=== PATIENT | female | born 1930 | race African-American/Black ===

== ENCOUNTER 2017-01-14 19:44 | Inpatient (IN) | payer MEDICARE, BC ==
[~2017-01-14] VITALS: Ht 167.6 cm; Wt 59.9 kg
[2017-01-14] MEDS ORDERED: SODIUM CHLORIDE 0.9% 1,000 ML IV ONE (20:14)
[2017-01-14 20:53] LABS: BASOPHILS % 0.8 % (0.0-2.0); EOSINOPHILS % 1.9 % (0.0-5.0); HEMATOCRIT. 27.7 % (36.0-48.0); HEMOGLOBIN. 9.5 g/dL (12.0-16.0); LYMPHOCYTES % 20.2 % (20.0-50.0); MEAN CORPUSCULAR HEMOGLOBIN 34.2 pg (28.0-32.0); MEAN CORPUSCULAR VOLUME 99.3 fL (81.0-99.0); MEAN PLATELET VOLUME 9.3 fl (7.4-10.4); MONOCYTES % 11.6 % (2.0-8.0); NEUTROPHILS % 65.5 % (40.0-76.0); PLATELET 89 x1000/uL (130-400); RED BLOOD CELL COUNT 2.79 mill/uL (4.2-5.4); RED CELL DISTRIBUTION WIDTH 15.1 % (11.6-14.6)
[2017-01-14 20:59] LABS: INR 1.1
[2017-01-14 21:08] LABS: CARBON DIOXIDE 24 mEq/L (21-32); CHLORIDE 106 mEq/L (98-107); TROPONIN I 0.06 ng/mL (0.00-0.04)
[2017-01-14] MEDS ORDERED: POTASSIUM CHLORIDE 20MEQ TABLET SR PO ONE (23:45)
[2017-01-15 00:30] VITALS: BP 132/56
[2017-01-15] MEDS ORDERED: LENA10CA PO (01:39)
[2017-01-15] MEDS ORDERED: CLOP75TA33 PO (01:39)
[2017-01-15] MEDS ORDERED: ASPI-1159 PO (01:39)
[2017-01-15] MEDS ORDERED: LOSA100T14 PO (01:39)
[2017-01-15 04:00] VITALS: BP 149/67
[2017-01-15 07:08] LABS: EOSINOPHILS % 2.9 % (0.0-5.0); HEMATOCRIT. 24.9 % (36.0-48.0); HEMOGLOBIN. 8.7 g/dL (12.0-16.0); LYMPHOCYTES % 26.4 % (20.0-50.0); MEAN CORPUSCULAR HEMOGLOBIN 34.1 pg (28.0-32.0); MEAN PLATELET VOLUME 9.8 fl (7.4-10.4); MONOCYTES % 14.4 % (2.0-8.0); NEUTROPHILS % 55.3 % (40.0-76.0); PLATELET 84 x1000/uL (130-400); RED BLOOD CELL COUNT 2.54 mill/uL (4.2-5.4); RED CELL DISTRIBUTION WIDTH 15.1 % (11.6-14.6)
[2017-01-15 07:46] LABS: CHLORIDE 114 mEq/L (98-107)
[2017-01-15 08:00] VITALS: BP 138/61
[2017-01-15 08:04] LABS: CARBON DIOXIDE 22 mEq/L (21-32); TROPONIN I 0.08 ng/mL (0.00-0.04)
[2017-01-15] MEDS ORDERED: LOSARTAN POTASSIUM 100 MG TABLET PO SCH (09:00)
[2017-01-15] MEDS ORDERED: ASPIRIN 81MG EC TABLET PO SCH (09:00)
[2017-01-15] MEDS ORDERED: CLOPIDOGREL 75MG TABLET PO SCH (09:00)
[2017-01-15 09:55] LABS: T4 FREE 0.88 ng/dL (0.76-1.46)
[2017-01-15] MEDS ORDERED: DIPHENOXYLATE/ATROPINE 2.5/0.025MG TABLET PO PRN (12:45)
[2017-01-15] MEDS ORDERED: SODIUM CHLORIDE 0.9% 1,000 ML IV SCH (12:45)
== END 2017-01-15 12:05 | disposition left against medical advice (07) | DRG 74 ==
LOC: ER 20:46 → 8WST 21:39 → EDBEDREQ 21:45 → ENRESERV 22:03
PROVIDERS: ADMIT Family Medicine; ATTEND Family Medicine
DX: G90.8 Other disorders of autonomic nervous system (principal); C90.00 Multiple myeloma not having achieved remission; D69.6 Thrombocytopenia, unspecified; D64.9 Anemia, unspecified; R63.4 Abnormal weight loss; Z53.21 Procedure and treatment not carried out due to patient leaving prior to being seen by health care provider; E87.6 Hypokalemia; I10 Essential (primary) hypertension; N28.9 Disorder of kidney and ureter, unspecified; Z86.73 Personal history of transient ischemic attack (TIA), and cerebral infarction without residual deficits; Z92.21 Personal history of antineoplastic chemotherapy; Z79.82 Long term (current) use of aspirin; Z79.899 Other long term (current) drug therapy; Z68.21 Body mass index [BMI] 21.0-21.9, adult
CPT/HCPCS: 36415; 71010; 80053; 80061; 83036; 83880; 84439; 84443; 84484; 85025; 85610; 93005; 96360; 96361; 99285; J7030